=== PATIENT | female | born 1970 | race Caucasian/White ===

== ENCOUNTER 2018-02-07 02:18 | Inpatient (IN) | END 2018-02-07 16:20 | disposition home or self-care (01) | DRG 313 ==

== ENCOUNTER 2018-11-05 12:48 | Emergency (ER) | payer BC ==
[~2018-11-05] VITALS: Wt 69.9 kg
[~2018-11-05 12:48] MED LIST: HYDR-4012 PO; TRAM50TA PO; ZOLP10TA PO
[2018-11-05] MEDS ORDERED: SOD CHLORIDE 0.9% 1,000 ML IV STA (16:37)
[2018-11-05] MEDS ORDERED: LEVOFLOXACIN 750MG/D5W (PMX) 150 ML IVPB STA (16:37)
--- NOTE | 2018-11-05 16:53 | ERD ---
ER Documentation Chief Complaint Chief Complaint bib self, cc: bilateral flank pain x 4 days, completed cipro x 7 day tx HPI 48-year-old female with a history of recurrent UTIs sent in by her primary care doctor for abnormal labs done at his office yesterday. Reportedly the patient had a UTI in September for which she was treated with Cipro. She improved with this treatment. She was good for about 2 weeks then about 5 days ago, she states that she felt weak, started having some left flank pain, dizziness, and decreased appetite. She feels feverish as well but has not documented any fevers at home. She denies any dysuria, hematuria, frequency or urgency. She went to see her doctor, Dr. Barry, yesterday at the office and labs were done. Urine culture is not yet back but it does look like she has a UTI and had mild leukocytosis as well. The left flank pain is described as dull, moderate, nonradiating. No alleviating factors, worsened with movement. ROS All systems reviewed and are negative except as per history of present illness. Medications Home Meds Active Scripts Levofloxacin* (Levaquin*) 750 Mg Tablet, 750 MG PO DAILY for 4 Days, TAB Prov:ELEAZAR LABOY MD 11/05/18 Reported Medications Tramadol Hcl* (Ultram*) 50 Mg Tablet, 50 MG PO NEEDED, TAB 11/05/18 Hydrocodone/Acetaminophen (Almyra 7.5-325 Tablet) 1 Each Tablet, 1 EACH PO NEEDED, TAB 11/05/18 Zolpidem Tartrate* (Ambien*) 10 Mg Tablet, 10 MG PO QHS PRN for INSOMNIA, TAB 11/05/18 Discontinued Reported Medications Hydrocodone/Acetaminophen (Almyra 7.5-325 Tablet) 1 Each Tablet, 1 EACH PO, TAB 02/07/18 Tramadol Hcl* (Ultram*) 50 Mg Tablet, 50 MG PO Q6H PRN for PAIN, TAB 02/07/18 Zolpidem Tartrate* (Ambien*) 10 Mg Tablet, 10 MG PO HS 02/29/12 Allergies Allergies: Coded Allergies: acetaminophen (Unverified Allergy, Mild, 11/05/18) propoxyphene (Unverified Allergy, Mild, 11/05/18) Sulfa (Sulfonamide Antibiotics) (Unverified Allergy, Unknown, 11/05/18) cephalexin (Unverified Allergy, Unknown, REDNESS, 11/05/18) sertraline (Unverified Allergy, Unknown, 11/05/18) PMhx/Soc History of Surgery: Yes (APPENDECTOMY, hysterectomy, CHOLECYSTOMY, SPENECTOMY) Anesthesia Reaction: No Hx Neurological Disorder: No Hx Respiratory Disorders: No Hx Cardiac Disorders: No Hx Psychiatric Problems: No Hx Miscellaneous Medical Probl: Yes (Recurrent UTIs, pyelonephritis, kidney stones) Hx Alcohol Use: No Hx Substance Use: No Hx Tobacco Use: Yes FmHx Family History: No diabetes Physical Exam Vitals Vital Signs Date Temp Pulse Resp B/P (MAP) Pulse Ox O2 O2 Flow FiO2 Time Delivery Rate 11/05/18 98.1 94 19 146/78 100 12:54 (100) Physical Exam Const: No acute distress, nontoxic, well-appearing Head: Atraumatic Eyes: Normal Conjunctiva ENT: Normal External Ears, Nose and Mouth. Neck: Full range of motion. No meningismus. Resp: Clear to auscultation bilaterally Cardio: Regular rate and rhythm, no murmurs Abd: Soft, mild suprapubic tenderness with no rebound or guarding. non distended. Normal bowel sounds Skin: No petechiae or rashes Back: No midline tenderness. +Left CVA tenderness Ext: No cyanosis, or edema Neur: Awake and alert Psych: Normal Mood and Affect Result Diagram: 11/05/18 1705 11/05/18 1705 Results 24 hrs Laboratory Tests Test 11/05/18 17:00 11/05/18 17:05 Urine Test NEGATIVE White Blood Count 10.5 10^3/ul Red Blood Count 4.48 10^6/ul Hemoglobin 13.3 g/dl Hematocrit 39.8 % Mean Corpuscular Volume 88.8 fl Mean Corpuscular Hemoglobin 29.7 pg Mean Corpuscular Hemoglobin Concent 33.4 g/dl Red Cell Distribution Width 12.6 % Platelet Count 595 10^3/UL Mean Platelet Volume 8.8 fl Immature Granulocytes % 0.300 % Neutrophils % 54.0 % Lymphocytes % 39.0 % Monocytes % 5.3 % Eosinophils % 0.9 % Basophils % 0.5 % Nucleated Red Blood Cells % 0.0 /100WBC Immature Granulocytes # 0.030 10^3/ul Neutrophils # 5.7 10^3/ul Lymphocytes # 4.1 10^3/ul Monocytes # 0.6 10^3/ul Eosinophils # 0.1 10^3/ul Basophils # 0.1 10^3/ul Nucleated Red Blood Cells # 0.0 10^3/ul Urine Color YELLOW Urine Clarity SLIGHTLY CLOUDY Urine pH 6.0 Urine Specific Anderson 1.006 Urine Ketones NEGATIVE mg/dL Urine Nitrite NEGATIVE mg/dL Urine Bilirubin NEGATIVE mg/dL Urine Urobilinogen NEGATIVE mg/dL Urine Leukocyte Esterase NEGATIVE Kitty/ul Urine Microscopic RBC 2 /HPF Urine Microscopic WBC 7 /HPF Urine Squamous Epithelial Cells FEW /HPF Urine Bacteria MANY /HPF Urine Mucus FEW /HPF Urine Hemoglobin 1+ mg/dL Urine Glucose NEGATIVE mg/dL Urine Total Protein NEGATIVE mg/dl Sodium Level 141 mmol/L Potassium Level 3.5 mmol/L Chloride Level 103 mmol/L Carbon Dioxide Level 29 mmol/L Anion Gap 9 Blood Urea Nitrogen 9 mg/dl Creatinine 0.50 mg/dl Est Glomerular Filtrat Rate mL/min > 60 mL/min Glucose Level 102 mg/dl Calcium Level 9.7 mg/dl Current Medications Medications Dose Sig/Valentina Start Time Status Last (Trade) Ordered Route PRN Stop Time Admin Dose Reason Admin Sodium 1,000 ml @ Q1H STAT 11/05/18 DC 11/05/18 Chloride 1,000 mls/hr IV 16:37 17:19 11/05/18 17:36 150 ml @ ONCE STAT 11/05/18 DC 11/05/18 Levofloxacin/ 100 mls/hr IVPB 16:37 17:19 Dextrose 11/05/18 18:06 Procedures/MDM EMERGENT LABS AND DIAGNOSTIC STUDIES: Lab Results above were reviewed and interpreted by me. CBC: Thrombocytosis, likely reaction to infection. No anemia or leukocytosis BMP: No evidence of electrolyte abnormality, acidosis, renal failure, hypoglycemia UA: Evidence of infection Urine culture pending Initial Nursing notes reviewed. Previous Medical Records requested via the Electronic Health Record. EMERGENCY DEPARTMENT COURSE / MEDICAL DECISION MAKING: I spoke with her primary care physician, who states that her last culture from September grew E. coli that was pansensitive. Reportedly she also had mild leukocytosis.Patient was initially treated with IV fluids and Levaquin IV. Here her vitals are stable and she is afebrile. No evidence of severe sepsis upon presentation. Patient's exam is consistent with pyelonephritis. Labs did not show any significant abnormalities other than thrombocytosis. I feel the patient is stable for discharge with outpatient oral antibiotics and continued outpatient follow-up with her primary care doctor. Strict return precautions were discussed. Prescription for 4 more days of Levaquin given. Follow-up with PCP recommended within 1 week. Patient's blood pressure was elevated (>120/80) but appears stable without evidence of hypertensive emergency or urgency. The patient was counseled about the risks of hypertension and urged to pursue outpatient monitoring and therapy within a week with their primary care physician. Departure Diagnosis: Primary Impression: Pyelonephritis Additional Impression: Left flank pain Condition: Stable ELEAZAR LABOY MD Nov 05, 2018 16:53
[2018-11-05] MEDS ORDERED: ZOLP10TA PO (17:16)
[2018-11-05] MEDS ORDERED: HYDR-4012 PO (17:17)
[2018-11-05] MEDS ORDERED: TRAM50TA PO (17:29)
[2018-11-05] MEDS ORDERED: LEVO750T25 PO (17:33)
[2018-11-05 19:04] VITALS: BP 135/85; PULSE 80; RESP 16
== END 2018-11-05 19:06 | disposition home or self-care (01) ==
LOC: E/R 12:48
DX: N12 Tubulo-interstitial nephritis, not specified as acute or chronic (principal); Z87.891 Personal history of nicotine dependence
CPT/HCPCS: 36415; 80048; 81001; 84703; 85025; 87086; 96374; 99284; J1956; J7030